=== PATIENT | male | born 1995 | race Caucasian/White ===

== ENCOUNTER 2016-12-31 19:56 | Emergency (ER) | payer BC ==
[2016-12-31 20:35] LABS: BASOPHIL % 0.4 % (0-2); PLATELET COUNT 290 x10^3mcL (130-400); RED CELL DISTRIBUTION WIDTH 12.7 % (11.5-14.5)
[2016-12-31 20:44] LABS: CALCIUM 9.5 mg/dL (8.5-10.1); CARBON DIOXIDE 29.4 mmol/L (21-32); CHLORIDE SERUM 104 mmol/L (98-107); CREATININE SERUM 1.1 mg/dL (0.7-1.3); GFR1 > 60 mL/min; GLUCOSE SERUM 111 mg/dL (74-106); POTASSIUM SERUM 3.8 mmol/L (3.5-5.1); SODIUM SERUM 142 mmol/L (136-145)
[2016-12-31 20:48] LABS: ALBUMIN 4.7 g/dL (3.4-5.0); ALKALINE PHOSPHATASE 72 U/L (46-116); ALT/SGPT 17 U/L (16-63); AST/SGOT 15 U/L (15-37); LIPASE 106 IU/L (73-393); TOTAL PROTEIN, SERUM 8.2 g/dL (6.4-8.2)
[2016-12-31 20:49] LABS: CHOLESTEROL 121 mg/dL (<200); HDL CHOLESTEROL 62 mg/dL (40-60); TRIGLYCERIDES 22 mg/dL (<150)
[2016-12-31 21:09] LABS: FREE T4 1.12 ng/dL (0.76-1.46); FREE THYROXINE INDEX 3.5 ug/dL (1.4-4.5); T3 TOTAL 1.06 ng/mL; T4(THYROXINE) 9.1 ug/dL (4.7-13.3)
[2016-12-31 22:26] LABS: microscopic required? NO
[2016-12-31 22:55] LABS: UA SPECIFIC GRAVITY 1.015 (1.005-1.035); urine erythrocyte NEGATIVE (NEGATIVE)
[2016-12-31 23:03] LABS: AMPHETAMINE QUAL UR POSITIVE (NEG <=1000)
[2016-12-31 23:34] VITALS: BP 140/85
== END 2016-12-31 23:34 | disposition home or self-care (01) ==
LOC: ED 19:56
PROVIDERS: Specialist
DX: R07.9 Chest pain, unspecified (principal); F14.10 Cocaine abuse, uncomplicated
CPT/HCPCS: 83880; 84439; G0480; J1885; J2060; Q0092